=== PATIENT | female | born 1965 | race Caucasian/White ===

== ENCOUNTER → 2017-02-05 | Outpatient (CLI) | payer BC ==
[~2017-02-05] MED LIST: NO HOME MEDS; OXYC-57 PO
--- NOTE | 2017-02-05 16:29 | MAMMOGRAPHY REPORT ---
BILATERAL DIGITAL SCREENING MAMMOGRAM TOMOSYNTHESIS WITH CAD: 02/05/2017 CLINICAL HISTORY: Routine screening. Patient has no complaints. TECHNIQUE: Breast tomosynthesis in addition to standard 2D mammography was performed. Current study was also evaluated with a Computer Aided Detection (CAD) system. COMPARISON: Comparison is made to exams dated: 01/31/2016 mammogram, 05/07/2015 breast MRI, 01/18/2015 ultrasound, 01/18/2015 mammogram, 01/11/2015 mammogram, and 12/15/2013 mammogram - [facility]. BREAST COMPOSITION: The tissue of both breasts is heterogeneously dense, which may obscure small ma sses. FINDINGS: No suspicious masses, calcifications, or areas of architectural distortion are noted in e ither breast. There has been no significant interval change compared to prior exams. Mass with an a ssociated biopsy marker clip in the right upper inner quadrant posteriorly is stable compared to leslee or exams. IMPRESSION: ACR BI-RADS CATEGORY 2: BENIGN There is no mammographic evidence of malignancy. A 1 year screening mammogram is recommended. The p atient will receive written notification of the results. Approximately 10% of breast cancers are not detected with mammography. A negative mammographic repor t should not delay biopsy if a clinically suggestive mass is present. Ivy Lai M.D. /:02/05/2017 13:54:32 [employer] Supervisor: Alisha Cohen, [facility] letter sent: Normal 1/2 BI-RADS Code: ACR BI-RADS Category 2: Benign
== END | disposition home or self-care (01) ==
LOC: C.MAMM 08:42
PROVIDERS: ATTEND Obstetrics & Gynecology
DX: Z12.31 Encounter for screening mammogram for malignant neoplasm of breast (principal)

== ENCOUNTER → 2017-04-05 | Outpatient (CLI) | payer BC | END | disposition home or self-care (01) | LOC: C.PAPS 11:03 | PROVIDERS: ATTEND Obstetrics & Gynecology | DX: Z01.419 Encounter for gynecological examination (general) (routine) without abnormal findings (principal) ==

== ENCOUNTER → 2018-02-08 | Outpatient (CLI) | payer OTHER ==
--- NOTE | 2018-02-10 07:47 | MAMMOGRAPHY REPORT ---
BILATERAL DIGITAL SCREENING MAMMOGRAM TOMOSYNTHESIS WITH CAD: 02/08/2018 CLINICAL HISTORY: Routine screening. TECHNIQUE: Breast tomosynthesis in addition to standard 2D mammography was performed. Current study was also evaluated with a Computer Aided Detection (CAD) system. COMPARISON: Comparison is made to exams dated: 02/05/2017 mammogram, 01/31/2016 mammogram, 01/11/2015 m ammogram, 12/15/2013 mammogram, 12/12/2012 mammogram, and 12/02/2011 mammogram - [facility] enter. BREAST COMPOSITION: The tissue of both breasts is heterogeneously dense, which may obscure small mas ses. FINDINGS: There are possible small clusters of microcalcifications in the upper outer posterior righ t breast for which additional spot magnification views are recommended. There is a stable circumscribed benign mass in the 1:00 posterior right breast, with associated ribbo n-shaped biopsy marker clip. No other suspicious mass, architectural distortion or cluster of microca lcifications is seen. IMPRESSION: ACR BI-RADS CATEGORY 0: INCOMPLETE EVALUATION: NEED ADDITIONAL IMAGING EVALUATION The possible small clusters of microcalcifications in the upper outer right breast need additional ev aluation. The patient will be called to schedule an appointment. Approximately 10% of breast cancers are not detected with mammography. A negative mammographic report should not delay biopsy if a clinically suggestive mass is present. Shanika Engle M.D. ay/:02/08/2018 15:13:25 Scroll Assembler: Hang JOHN(Raymond)(Rossy), [facility] letter sent: Addl Imaging 0 BI-RADS Code: ACR BI-RADS Category 0: Incomplete Evaluation: Need Additional Imaging Evaluation
== END | disposition home or self-care (01) ==
LOC: C.MAMM 13:03
PROVIDERS: ATTEND Obstetrics & Gynecology
DX: Z12.31 Encounter for screening mammogram for malignant neoplasm of breast (principal); R92.8 Other abnormal and inconclusive findings on diagnostic imaging of breast

== ENCOUNTER → 2018-02-21 | Outpatient (CLI) | payer OTHER ==
--- NOTE | 2018-02-22 07:42 | MAMMOGRAPHY REPORT ---
UNILATERAL RIGHT DIGITAL DIAGNOSTIC MAMMOGRAM: 02/21/2018 CLINICAL HISTORY: 52-year-old woman called back from screening mammography for possible clusters of m icrocalcifications in the upper outer posterior right breast. Family history of breast cancer = sist er. TECHNIQUE: Spot magnification right CC and ML views were obtained. COMPARISON: Comparison is made to exams dated: 02/08/2018 mammogram, 02/05/2017 mammogram, 01/31/2016 m ammogram, 05/07/2015 breast MRI, 01/18/2015 ultrasound, and 01/18/2015 mammogram - [facility] enter. BREAST COMPOSITION: The tissue of the right breast is heterogeneously dense, which may obscure small masses. FINDINGS: The spot magnification right CC view demonstrates 2 discrete 1.6 mm clusters of faint punct ate/amorphous microcalcifications in the lateral posterior breast. The spot magnification ML view de monstrates the 2 clusters seen in the CC projection and possible additional third faint amorphous clu ster of calcifications slightly superiorly. There are benign layering/tea cupping calcifications in the middle one third of the right breast, representing benign milk of calcium. No obvious mass or ar ea of architectural distortion is seen. The calcifications were not definitely seen on prior mammogr ams and are therefore indeterminate. Definitive characterization with tissue sampling is recommended . We discussed options of biopsying both clusters or biopsying one cluster and following the other c luster in short intervals to ensure stability. Ideally, would attempt biopsy of both conspicuous clu sters at the same time. A ribbon-shaped biopsy marker clip is present in the upper inner posterior right breast, denoting a s ite of prior benign ultrasound-guided core biopsy. IMPRESSION: ACR BI-RADS CATEGORY 4: SUSPICIOUS 1. Right breast stereotactic guided biopsy is recommended for two new clusters of of microcalcificat ions in the upper outer posterior right breast. 2. Pending benign pathology results, would recommend follow-up right diagnostic mammograms including spot magnification views, as other punctate/amorphous possible amorphous microcalcifications were see n in the superior right breast on the spot magnification ML view. These results and recommendations were discussed with the patient at the time of the exam. She tenta tively scheduled the right breast stereotactic biopsies prior to leaving the department. Approximately 10% of breast cancers are not detected with mammography. A negative mammographic report should not delay biopsy if a clinically suggestive mass is present. Shanika Engle M.D. ay/:02/21/2018 12:00:46 Floor Supervisor: Alisha Cohen, [facility] letter sent: Abnormal 4/5 BI-RADS Code: ACR BI-RADS Category 4: Suspicious
== END | disposition home or self-care (01) ==
LOC: C.MAMM 11:15
PROVIDERS: ATTEND Obstetrics & Gynecology
DX: R92.0 Mammographic microcalcification found on diagnostic imaging of breast (principal)

== ENCOUNTER → 2018-03-04 | Outpatient (CLI) | payer OTHER ==
--- NOTE | 2018-03-04 10:02 | Discharge Instructions ---
Discharge Instructions Procedure Procedure Date: Mar 04, 2018. Reason for visit: Right Calcifications (X2). Discharge Discharge Date: Mar 04, 2018. Discharge Diagnosis: status post breast biopsy Instructions Activity Recommendations: Additional Limitations (see below) Return to School/Work: no limitations Recommended Home Diet: No Limitations Provider Instructions: ACTIVITY RECOMMENDATIONS: * No lifting, pushing, pulling or exercising the affected side for three days. RETURN TO SCHOOL/WORK: * You may return to work/school after the procedure, but do not perform any strenuous activities for 24 to 48 hours. MEDICATIONS: * Tylenol (two 325 mg) every four to six hours if needed for mild pain (if not allergic to Tylenol). DIET: * Resume previous diet. SPECIAL CARE INSTRUCTIONS: * Keep biopsy site dry for 24 hours. May shower after 24 hours, but do not soak (bathe) incision. * May remove Tegaderm (plastic patch) tomorrow AFTER showering. * Leave the steri-strips on for one week. Allow the steri-strips to fall off by themselves. If not off after one week, you may remove them. You may place a Bandaid crosswise over the strips, if desired. * Apply ice 10 minutes on and 10 minutes off as needed. * Wear a bra at bedtime to sleep more comfortably for 2-3 days. * Your referring physician should have the results after approximately 5 to 7 business days. * Call for unusual bleeding, fever, drainage, etc or if you have any questions call during normal business hours or after hours call Dr Lai, . FOLLOW UP VISIT: Follow-up with Referring Physician as scheduled. Allergies Coded Allergies: No Known Allergies (Unverified , 04/16/14) Radha Dupont Recommendations: Call your doctor if: * Temperature above 101 degrees * Pain not relieved by pain medicine ordered * There is increased drainage or redness from any incision * You have any unanswered questions or concerns. Your Doctors Instructions noted above were prepared by provider Ivy Lai. Patient Signature Section: Patient Instructions Signature Page Vicky Munson Patient (or Guardian) Signature/Date: I have read and understand the instructions given to me by my caregivers. Caregiver/RN/Doctor Signature/Date: The above-named patient and/or guardian has received patient instructions on this date. + Original Patient Signature Page (only) stays with chart. Please make copy for patient.
--- NOTE | 2018-03-07 08:06 | MAMMOGRAPHY REPORT ---
STEREOTACTIC GUIDED BIOPSY RIGHT BREAST: 03/04/2018 CLINICAL HISTORY: 2 small clusters of calcifications within the right upper outer quadrant. PATIENT CONSENT: The procedure, risks, benefits, and alternatives of stereotactic biopsy with clip pl acement were discussed with the patient, and verbal and written consent was obtained. A timeout was performed immediately prior to the procedure. PROCEDURE DESCRIPTION: With stereotactic guidance, aseptic technique, and lidocaine as a local anesth etic (1% lidocaine to anesthetize the skin and 1% lidocaine with epinephrine to anesthetize the deepe r tissues), a small cluster of calcifications within the right upper outer quadrant (the more anterio r cluster, labeled "B") was sampled multiple times with a 9-gauge vacuum-assisted biopsy needle (Brandicted). The path of approach was lateral. The specimen radiograph demonstrates calcifications to be present in the samples. A metallic marker clip (dumbell-shaped) was placed at the biopsy site. T his was confirmed on postprocedure mammograms. Direct pressure was applied at the biopsy site and he mostasis was readily achieved. The patient tolerated the procedure without complication. She was gi [place] wound care instructions. COMPARISON: Comparison is made to exams dated: 03/04/2018 mammogram, 02/08/2018 mammogram, 02/05/2017 m ammogram, 01/31/2016 mammogram, 01/11/2015 mammogram, and 12/15/2013 mammogram - [facility] enter. IMPRESSION: STEREOTACTIC GUIDED BIOPSY Stereotactic biopsy of a small cluster of calcifications within the right upper outer quadrant (label ed "B"), with clip placement. The patient will receive pathology results from her referring provider . Ivy Lai M.D. /:03/04/2018 10:13:51 Attending Technologist: Jacqui Rosario RT(R)(M), [facility] Account Services Analyst: Hang Shen RT(R)(M), [facility]
--- NOTE | 2018-03-07 08:06 | MAMMOGRAPHY REPORT ---
STEREOTACTIC GUIDED BIOPSY RIGHT BREAST: 03/04/2018 CLINICAL HISTORY: Two clusters of calcifications within the right upper outer quadrant. PATIENT CONSENT: The procedure, risks, benefits, and alternatives of stereotactic biopsy with clip pl acement were discussed with the patient, and verbal and written consent was obtained. A timeout was performed immediately prior to the procedure. PROCEDURE DESCRIPTION: With stereotactic guidance, aseptic technique, and lidocaine as a local anesth etic (1% lidocaine to anesthetize the skin and 1% lidocaine with epinephrine to anesthetize the deepe r tissues), a small cluster of calcifications within the right upper outer quadrant (the more posteri or cluster, labeled "A") sampled multiple times with a 9-gauge vacuum-assisted biopsy needle (Total Boox). The path of approach was lateral. The specimen radiograph demonstrates calcifications to be present in the samples. A metallic marker clip (T-shaped) was placed at the biopsy site. This was c onfirmed on postprocedure mammograms. Direct pressure was applied at the biopsy site and hemostasis was readily achieved. The patient tolerated the procedure without complication. She was given wound care instructions. COMPARISON: Comparison is made to exams dated: 02/21/2018 mammogram, 02/08/2018 mammogram, 01/31/2016 ma mmogram, 01/11/2015 mammogram, and 12/15/2013 mammogram - [facility]. IMPRESSION: STEREOTACTIC GUIDED BIOPSY Stereotactic biopsy of indeterminate calcifications in the right upper outer quadrant posteriorly (la beled "A"), with clip placement. The patient will receive pathology results from her referring provi myraJohn Lai M.D. ah/:03/04/2018 10:12:06 Attending Technologist: Jacqui Rosario RT(R)(M), [facility] Specialties Operator: Hang Shen RT(R)(M), [facility]
--- NOTE | 2018-03-07 08:10 | MAMMOGRAPHY REPORT ---
UNILATERAL RIGHT DIGITAL DIAGNOSTIC MAMMOGRAM: 03/04/2018 CLINICAL HISTORY: Status post right breast stereotactic biopsy 2. TECHNIQUE: Postprocedural right CC and ML views were obtained. COMPARISON: Comparison is made to exams dated: 02/21/2018 mammogram, 02/08/2018 mammogram, 01/31/2016 ma mmogram, 02/05/2017 mammogram, 01/11/2015 mammogram, and 12/15/2013 mammogram - [facility]. BREAST COMPOSITION: The tissue of the right breast is heterogeneously dense, which may obscure small masses. FINDINGS: A new T-shaped biopsy marker clip is seen at the site of the biopsied calcifications in the right upper outer quadrant (more posterior cluster, labeled "A"). A new dumbbell-shaped clip is see n at the site of the other biopsied cluster of calcifications within the right upper outer quadrant ( more anterior cluster, labeled "B"). No significant postbiopsy hematoma is seen. A ribbon-shaped bi opsy marker clip is seen within the right upper inner quadrant from remote biopsy. IMPRESSION: POST PROCEDURE IMAGING FOR MARKER PLACEMENT Two new biopsy marker clips in the right upper outer quadrant status post stereotactic biopsy 2. Pa thology results are pending. Approximately 10% of breast cancers are not detected with mammography. A negative mammographic report should not delay biopsy if a clinically suggestive mass is present. Ivy Lai M.D. ah/:03/04/2018 10:15:51 Attending Technologist: Jacqui Rosario RT(R)(M), [facility] Licensing Registration Examiner: Hang Shen RT(R)(M), [facility] BI-RADS Code: Post Procedure Imaging For Marker Placement
== END | disposition home or self-care (01) ==
LOC: C.MAMM 08:51
PROVIDERS: ATTEND Obstetrics & Gynecology
DX: R92.0 Mammographic microcalcification found on diagnostic imaging of breast (principal); D05.91 Unspecified type of carcinoma in situ of right breast